=== PATIENT | female | born 1985 | race Two or more races ===

== ENCOUNTER 2017-01-11 18:19 | Emergency (ER) | payer OTHER ==
[~2017-01-11] VITALS: Ht 162.6 cm; Wt 74.4 kg
[~2017-01-11 18:19] MED LIST: APAP/BUTALBITAL1 TA1 PO; FERROUS SULFAT325 M1 PO; PRENATAL PLUS1 TA1 PO
--- NOTE | 2017-01-11 19:28 | Urgent Treatment Center Report ---
History of Present Issue Date/Time Seen by Provider 01/11/171921 Visit Reason Pt arrived:Walked Presenting Problem:PT C/O OF FEVER, BODY ACHES, SORE THROAT, AND EAR PAIN Location if Accident: Onset of symptoms date/time:01/09 or onset unknown for: Have you (or family members/close friends) recently traveled outside the [place]? N If Yes, where/when: Have you had exposure to infectious disease within the past month? TB? Other? Specify: Patient states that she has not felt well for several days states that she has sorethroat, fever, body aches and pain in both her ears. States that she has just been laying around and continued to feel worse. State that it hurts to swallow and feels like her throat is raw. State that she noticed that she is having yellowish colored drainage ALLERGIES Coded Allergies: No Known Allergies (03/04/16) Home Medications Reported Medications APAP 325MG/CAFF 40MG/BUTA 50MG (Tvstdb-Kkduwgjd-Cwed 50-325-40) 1 TAB PO Q6HP MULTIVIT-MIN W/FE-FA ( Multivitamin Tablet) 1 TAB PO DAILY Ferrous Sulfate (Ferrous Sulfate 325MG) 325 MG PO DAILY History Medical History General Angina: No [place]: No Hypertension? No Hyperlipidemia? No CHF? No COPD? No Asthma? No CVA? No Seizures? No Diabetes? No GB Disease: No MRSA? No TB? No Cancer? No Immunization HX DT/Tetanus Unknown Flu THISFLUSEA Pneumonia REFUSES Surgical Hx Previous Surgery?N Social History Smoking Hx Smoker: Never Smoker Tobacco: No Alcohol Alcohol: No Review of Systems All Other Systems Reviewed and Negative Constitutional chills, fever ENT ear pain, nose discharge, nose congestion, throat pain, throat swelling. Respiratory cough Psychiatric/Neurological headache Physical Exam Vital Signs Vital Signs Date Time Temp Pulse Resp B/P Pulse O2 O2 Flow FiO2 Ox Delivery Rate 01/11 1914 100.1 110 20 123/84 100 General Appearance Patient appears ill sitting on exam table Ear, Nose, Throat sinus pain/drainage, nasal congestion, tonsillar swelling, Throat bright red, irritated swollen, yellowish drainage from nose and tenderness maxillary sinuses, right ear no redness TM buldging clear left ear no redness tm buldging clear fluid noted Respiratory Status Yes: trachea midline, chest symmetrical, non tender chest. No: respiratory distress. 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 No Results/Orders Laboratory Tests 01/11/171919: Group A Strep Screen NOT DETECTED Orders Procedure Date/time Status [facility] STREP SCREEN 01/11 1922 Complete Progress [facility] Progress Notes Comment reviewed Departure Departure Time of Disposition 1943 Disposition DC Home or Self Care(routine) Clinical Impression Primary Impression: Upper respiratory infection Qualifiers: URI type: unspecified URI Qualified Code: J06.9 - Acute upper respiratory infection, unspecified Condition STABLE Referrals Suhail Flores MD (Family): 3 Days-Call Office if no improvement in symptoms Patient Instructions DI for Nasal Congestion, Sore Throat Additional Instructions * Monitor Temp. Tylenol and/or Ibuprofen as needed. ER if fever is no less than 101 despite alternating Tylenol and Ibuprofen * Encourage fluids, water, Gatorade, powerade, pedialyte if /toddler/or child * Warm salt water gargles for throat irritation *Warm fluids *Sore throat lozenges *Sleep elevated *humidifier or vaporizer *Flonase 2 sprays each nostril daily but may take 2-3 days to notice improvement with it *Bromfed may cause drowsiness. Know how it effect you or your child. Before driving, caring for small children or sending your child to school Follow up IMMEDIATELY for new or worsening of symptoms OR no noticeable improvement over the next 48-72 hours. 911 immediately for any life threatening symptoms such as chest pain or difficulty breathing Discharge Counseling Counseled pt/family regarding diagnosis, test results, medications/RX, home care, follow up needs Prescriptions Current Visit Scripts Azithromycin (Zithromycin (Z-JUNIOR) 250MG Tab) 250 MG PO DAILY #6 TAB TAKE TWO (2) TABLETS ON DAY 1, THEN ONE (1) TABLET DAY #2 THRU #5 D-METHORPHAN HB/P-EPD HCL/BPM (Bromfed Dm Cough Syrup) 10 ML PO Q4HP PRN cough #150 SYR Fluticasone Propionate (Flonase 50 Mcg Nasal [place]) 2 SPRAY NA DAILY #1 BOT Methylprednisolone (Medrol Dose Junior) 4 MG PO UD #1 JUNIOR TAKE DIRECTED ON PACKAGING at 1946
--- NOTE | 2017-01-11 19:28 | Urgent Treatment Center Report ---
History of Present Issue Date/Time Seen by Provider 01/11/171921 Visit Reason Pt arrived:Walked Presenting Problem:PT C/O OF FEVER, BODY ACHES, SORE THROAT, AND EAR PAIN Location if Accident: Onset of symptoms date/time:01/09 or onset unknown for: Have you (or family members/close friends) recently traveled outside the [place]? N If Yes, where/when: Have you had exposure to infectious disease within the past month? TB? Other? Specify: Patient states that she has not felt well for several days states that she has sorethroat, fever, body aches and pain in both her ears. States that she has just been laying around and continued to feel worse. State that it hurts to swallow and feels like her throat is raw. State that she noticed that she is having yellowish colored drainage ALLERGIES Coded Allergies: No Known Allergies (03/04/16) Home Medications Reported Medications APAP 325MG/CAFF 40MG/BUTA 50MG (Evsrks-Wbvbdmqc-Npjj 50-325-40) 1 TAB PO Q6HP MULTIVIT-MIN W/FE-FA ( Multivitamin Tablet) 1 TAB PO DAILY Ferrous Sulfate (Ferrous Sulfate 325MG) 325 MG PO DAILY History Medical History General Angina: No [place]: No Hypertension? No Hyperlipidemia? No CHF? No COPD? No Asthma? No CVA? No Seizures? No Diabetes? No GB Disease: No MRSA? No TB? No Cancer? No Immunization HX DT/Tetanus Unknown Flu THISFLUSEA Pneumonia REFUSES Surgical Hx Previous Surgery?N Social History Smoking Hx Smoker: Never Smoker Tobacco: No Alcohol Alcohol: No Review of Systems All Other Systems Reviewed and Negative Constitutional chills, fever ENT ear pain, nose discharge, nose congestion, throat pain, throat swelling. Respiratory cough Psychiatric/Neurological headache Physical Exam Vital Signs Vital Signs Date Time Temp Pulse Resp B/P Pulse O2 O2 Flow FiO2 Ox Delivery Rate 01/11 1914 100.1 110 20 123/84 100 General Appearance Patient appears ill sitting on exam table Ear, Nose, Throat sinus pain/drainage, nasal congestion, tonsillar swelling, Throat bright red, irritated swollen, yellowish drainage from nose and tenderness maxillary sinuses, right ear no redness TM buldging clear left ear no redness tm buldging clear fluid noted Respiratory Status Yes: trachea midline, chest symmetrical, non tender chest. No: respiratory distress. 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 No Results/Orders Laboratory Tests 01/11/171919: Group A Strep Screen NOT DETECTED Orders Procedure Date/time Status [facility] STREP SCREEN 01/11 1922 Complete Progress [facility] Progress Notes Comment reviewed Departure Departure Time of Disposition 1943 Disposition DC Home or Self Care(routine) Clinical Impression Primary Impression: Upper respiratory infection Qualifiers: URI type: unspecified URI Qualified Code: J06.9 - Acute upper respiratory infection, unspecified Condition STABLE Referrals Suhail Flores MD (Family): 3 Days-Call Office if no improvement in symptoms Patient Instructions DI for Nasal Congestion, Sore Throat Additional Instructions * Monitor Temp. Tylenol and/or Ibuprofen as needed. ER if fever is no less than 101 despite alternating Tylenol and Ibuprofen * Encourage fluids, water, Gatorade, powerade, pedialyte if /toddler/or child * Warm salt water gargles for throat irritation *Warm fluids *Sore throat lozenges *Sleep elevated *humidifier or vaporizer *Flonase 2 sprays each nostril daily but may take 2-3 days to notice improvement with it *Bromfed may cause drowsiness. Know how it effect you or your child. Before driving, caring for small children or sending your child to school Follow up IMMEDIATELY for new or worsening of symptoms OR no noticeable improvement over the next 48-72 hours. 911 immediately for any life threatening symptoms such as chest pain or difficulty breathing Discharge Counseling Counseled pt/family regarding diagnosis, test results, medications/RX, home care, follow up needs Prescriptions Current Visit Scripts Azithromycin (Zithromycin (Z-JUNIOR) 250MG Tab) 250 MG PO DAILY #6 TAB TAKE TWO (2) TABLETS ON DAY 1, THEN ONE (1) TABLET DAY #2 THRU #5 D-METHORPHAN HB/P-EPD HCL/BPM (Bromfed Dm Cough Syrup) 10 ML PO Q4HP PRN cough #150 SYR Fluticasone Propionate (Flonase 50 Mcg Nasal [place]) 2 SPRAY NA DAILY #1 BOT Methylprednisolone (Medrol Dose Junior) 4 MG PO UD #1 JUNIOR TAKE DIRECTED ON PACKAGING at 1946
[2017-01-11] MEDS ORDERED: ZITHROMAX Z PA250 MG PO (19:45)
[2017-01-11] MEDS ORDERED: MEDROL 4MG. DOSE4 MG PO (19:45)
[2017-01-11] MEDS ORDERED: FLONASE 50 MCG16 GM (19:45)
[2017-01-11] MEDS ORDERED: BROMFED DM COU118 ML PO (19:45)
[2017-01-11 19:53] VITALS: BP 123/84
== END 2017-01-11 19:54 | disposition home or self-care (01) ==
LOC: UTC 18:19
DX: J06.9 Acute upper respiratory infection, unspecified (principal)

== ENCOUNTER → 2017-03-11 | Outpatient (CLI) | payer OTHER ==
[~2017-03-11] MED LIST changes: +BROMFED DM COU118 ML PO; +FLONASE 50 MCG16 GM; +MEDROL 4MG. DOSE4 MG PO; +ZITHROMAX Z PA250 MG PO
--- NOTE | 2017-03-11 16:21 | RADIOLOGY REPORT PS360 ---
US THYROID HISTORY: THYROMEGALY ORDERING PHYSICIAN: Suhail Flores MD PATIENT AGE: 31 years COMPARISON: None FINDINGS: Right lobe: 4.2 x 1.5 x 1.7 cm. Homogeneous echogenicity without nodule Left lobe: 3.6 x 1.4 x 1.8 cm. Homogeneous echogenicity without nodule Isthmus: Unremarkable IMPRESSION: Negative thyroid ultrasound.
== END ==
LOC: RAD 15:16
DX: E01.0 Iodine-deficiency related diffuse (endemic) goiter (principal)